=== PATIENT | male | born 1955 | race American Indian/Alaskan Native ===

== ENCOUNTER 2018-11-25 08:56 | Outpatient (CLI) | payer OTHER ==
--- NOTE | 2018-11-25 09:57 | XRay Report ---
BILATERAL KNEES, 2 VIEWS History: Pain, disability exam. Findings: There is normal bone mineralization. There is mild retropatellar spurring in both knees. The medial and lateral compartments are within normal limits. There is no evidence for fracture, bone lesion or large joint effusion. Posterior vascular calcifications are noted bilaterally. Impression: Minimal osteoarthritic changes. Vascular calcifications suggesting diabetes or peripheral vascular disease.
--- NOTE | 2018-11-25 09:58 | XRay Report ---
AP AND LATERAL LUMBOSACRAL SPINE: History: Pain, disability exam. Normal bone mineralization. There is normal height and alignment of the lumbar vertebral bodies. The disc spaces are normal height. The posterior elements are unremarkable. Minimal facet arthropathy is noted at L4-5 and L5-S1. IMPRESSION: Mild facet arthropathy in the lower lumbar spine.
== END 2018-11-25 08:57 | disposition home or self-care (01) ==
LOC: XRAY 08:56
PROVIDERS: ATTEND Internal Medicine
DX: Z02.71 Encounter for disability determination (principal); M46.87 Other specified inflammatory spondylopathies, lumbosacral region; M17.0 Bilateral primary osteoarthritis of knee
CPT/HCPCS: 72100